=== PATIENT | male | born 1960 | race African-American/Black ===

== ENCOUNTER 2016-02-24 09:36 | Outpatient (CLI) | payer MEDICARE, OTHER ==
[2015-02-25 09:19] VITALS: BP 135/88
[2016-02-24 09:55] LABS: BASOPHILS % 0.6 (0.0-1.5); EOSINOPHILS % 1.7 % (0.0-6.8); MEAN CORPUSCULAR HEMOGLOBIN 34.2 pg (28.0-34.0); MONOCYTES # 0.3 # k/uL (0.0-0.9); MONOCYTES % 8.4 % (0.0-11.0); NEUTROPHILS # 1.8 # k/uL (1.4-7.7)
[2016-02-24 10:18] LABS: eGFR (African) > 60; eGFR (Non-African) > 60
== END 2016-02-24 09:37 ==
LOC: LAB 09:36
PROVIDERS: ATTEND Family Medicine
DX: E78.2 Mixed hyperlipidemia (principal); D50.0 Iron deficiency anemia secondary to blood loss (chronic); Z12.5 Encounter for screening for malignant neoplasm of prostate
CPT/HCPCS: 36415; 80053; 80061; 84153; 85025

== ENCOUNTER 2016-03-16 08:25 | Outpatient (CLI) | payer MEDICARE, MEDICAID ==
[2015-02-25 09:19] VITALS: BP 135/88
[2016-03-16 08:40] LABS: BASOPHILS % 0.4 (0.0-1.5); MONOCYTES # 0.4 # k/uL (0.0-0.9); NEUTROPHILS # 2.6 # k/uL (1.4-7.7)
== END 2016-03-16 08:26 ==
LOC: LAB 08:25
PROVIDERS: ATTEND Family Medicine
DX: D70.8 Other neutropenia (principal)
CPT/HCPCS: 36415; 85025

== ENCOUNTER 2016-04-01 10:42 | Outpatient (CLI) | payer MEDICARE, MEDICAID ==
[2015-02-25 09:19] VITALS: BP 135/88
== END 2016-04-01 10:43 ==
LOC: POD 10:42
PROVIDERS: ATTEND Podiatrist Public Medicine
DX: B35.1 Tinea unguium (principal); L60.0 Ingrowing nail; M79.674 Pain in right toe(s); M79.675 Pain in left toe(s)
CPT/HCPCS: 11721; G0463

== ENCOUNTER 2016-07-22 10:22 | Outpatient (CLI) | payer MEDICARE, OTHER ==
[2015-02-25 09:19] VITALS: BP 135/88
== END 2016-07-22 10:23 ==
LOC: POD 10:22
PROVIDERS: ATTEND Podiatrist Public Medicine
DX: B35.1 Tinea unguium (principal); L60.0 Ingrowing nail; M79.672 Pain in left foot; M79.674 Pain in right toe(s); M79.675 Pain in left toe(s); M76.62 Achilles tendinitis, left leg
CPT/HCPCS: G0463

== ENCOUNTER 2016-10-21 10:02 | Outpatient (CLI) | payer MEDICARE, OTHER ==
[2015-02-25 09:19] VITALS: BP 135/88
== END 2016-10-21 10:03 ==
LOC: POD 10:02
PROVIDERS: ATTEND Podiatrist Public Medicine
DX: B35.1 Tinea unguium (principal); M79.674 Pain in right toe(s); M79.675 Pain in left toe(s); M79.672 Pain in left foot; L60.0 Ingrowing nail; M76.62 Achilles tendinitis, left leg
CPT/HCPCS: 11721; G0463

== ENCOUNTER 2016-11-25 14:39 | Outpatient (CLI) | payer MEDICARE, OTHER ==
[2015-02-25 09:19] VITALS: BP 135/88
[2016-11-25 14:49] LABS: APPEARANCE,URINE Clear (CLEAR); COLOR,URINE Yellow (YELLOW); OCCULT BLOOD,URINE Negative (NEGATIVE); PH URINE 5.5 (5.0 - 8.0); UROBILINOGEN URINE 0.2 Eu (0.2-1.0)
== END 2016-11-25 14:40 ==
LOC: LAB 14:39
PROVIDERS: ATTEND Family Medicine
DX: R30.0 Dysuria (principal)
CPT/HCPCS: 81002; 87086

== ENCOUNTER 2017-01-20 14:54 | Outpatient (CLI) | payer MEDICARE, OTHER ==
[2015-02-25 09:19] VITALS: BP 135/88
--- NOTE | 2017-01-21 12:31 | OP Clinic Progress Note ---
REASON FOR VISIT: Travis is a 56-year-old man with a predominantly left-sided ear itch issues. He does not feel as if the hearing is really down. He has a mild but sticky otitis externa in the left ear. I do not see a hole or perforation or cholesteatoma and I do not see middle ear fluid. I micro-debrided the left ear and then put 91% alcohol drops in it. They do not sting. PLAN: I asked him to fill the ear canal with 91% alcohol solution once a day for the next 6 weeks and I will see him back and see if there is progress. It looks to be more of a smoldering otitis externa. cc: Dr. Ewelina PEREZ
== END 2017-01-20 15:00 ==
LOC: ENT 14:54
PROVIDERS: ATTEND Otolaryngology
DX: H60.92 Unspecified otitis externa, left ear (principal)
CPT/HCPCS: G0463

== ENCOUNTER 2017-02-17 10:27 | Outpatient (CLI) | payer MEDICARE, OTHER ==
[2015-02-25 09:19] VITALS: BP 135/88
== END 2017-02-17 10:30 ==
LOC: POD 10:27
PROVIDERS: ATTEND Podiatrist Public Medicine
DX: B35.1 Tinea unguium (principal); L60.0 Ingrowing nail; M76.62 Achilles tendinitis, left leg; M79.672 Pain in left foot; M79.674 Pain in right toe(s); M79.675 Pain in left toe(s)
CPT/HCPCS: 11721; G0463

== ENCOUNTER 2017-03-03 13:38 | Outpatient (CLI) | payer MEDICARE, OTHER ==
[2015-02-25 09:19] VITALS: BP 135/88
--- NOTE | 2017-03-08 17:39 | OP Clinic Progress Note ---
REASON FOR VISIT: This 56-year-old man was seen in follow up of bilateral otitis externa. He has had his ears cleaned. I had him use alcohol drops in both ears to keep these clean and that has been kept up with. Both eardrums and ear canals are fairly clean. There is no visual perforation. PLAN: I think, although he is markedly improved, for a year, just twice a month, approximately every 2 weeks, rinse both ears with alcohol. Again, ongoing for approximately a year. I would give him no specific follow up. There was a small amount of debris and a small amount of exudates that was not significant enough to need to be removed manually today. cc: Dr. Ewelina PEREZ
== END 2017-03-03 13:40 ==
LOC: ENT 13:38
PROVIDERS: ATTEND Otolaryngology
DX: H60.93 Unspecified otitis externa, bilateral (principal)
CPT/HCPCS: G0463

== ENCOUNTER → 2017-03-05 | Outpatient (CLI) | payer MEDICARE, OTHER ==
[2015-02-25 09:19] VITALS: BP 135/88
[2017-03-05 10:00] LABS: eGFR (African) > 60; eGFR (Non-African) > 60
== END ==
LOC: LAB 08:23
PROVIDERS: ATTEND Family Medicine
DX: E78.2 Mixed hyperlipidemia (principal); Z12.5 Encounter for screening for malignant neoplasm of prostate
CPT/HCPCS: 36415; 80053; 80061; G0103

== ENCOUNTER 2017-05-19 10:19 | Outpatient (CLI) | payer MEDICARE, OTHER ==
[2015-02-25 09:19] VITALS: BP 135/88
== END 2017-05-19 10:20 ==
LOC: POD 10:19
PROVIDERS: ATTEND Podiatrist Public Medicine
DX: B35.1 Tinea unguium (principal); L60.0 Ingrowing nail; M76.62 Achilles tendinitis, left leg; M79.672 Pain in left foot; M79.674 Pain in right toe(s); M79.675 Pain in left toe(s)
CPT/HCPCS: 11721; G0463

== ENCOUNTER 2017-09-15 10:15 | Outpatient (CLI) | payer MEDICARE, OTHER ==
[2015-02-25 09:19] VITALS: BP 135/88
== END 2017-09-15 10:16 ==
LOC: POD 10:15
PROVIDERS: ATTEND Podiatrist Public Medicine
DX: B35.1 Tinea unguium (principal); L60.0 Ingrowing nail; M76.62 Achilles tendinitis, left leg; M79.674 Pain in right toe(s); M79.675 Pain in left toe(s)
CPT/HCPCS: 11721; G0463

== ENCOUNTER 2018-03-07 10:51 | Outpatient (CLI) | payer MEDICARE, OTHER ==
[2015-02-25 09:19] VITALS: BP 135/88
[2018-03-07 11:44] LABS: eGFR (Non-African) 45
[2018-03-07 11:45] LABS: MEAN CORPUSCULAR HEMOGLOBIN 34.3 pg (28.0-34.0)
== END 2018-03-07 10:53 ==
LOC: LAB 10:51
PROVIDERS: ATTEND Family Medicine
DX: E78.2 Mixed hyperlipidemia (principal); D64.9 Anemia, unspecified; Z12.5 Encounter for screening for malignant neoplasm of prostate
CPT/HCPCS: 36415; 80053; 80061; 83540; 85027; G0103

== ENCOUNTER 2018-04-01 11:38 | Outpatient (CLI) | payer MEDICARE, OTHER ==
[2015-02-25 09:19] VITALS: BP 135/88
[2018-04-01 11:53] LABS: BASOPHILS % 0.3 (0.0-1.5); EOSINOPHILS % 2.3 % (0.0-6.8); MEAN CORPUSCULAR HEMOGLOBIN 34.9 pg (28.0-34.0); MONOCYTES % 4.5 % (0.0-11.0); NEUTROPHILS # 2.1 # k/uL (1.4-7.7)
[2018-04-01 12:20] LABS: eGFR (Non-African) > 60
== END 2018-04-01 11:45 ==
LOC: LAB 11:38
PROVIDERS: ATTEND Family Medicine
DX: R79.89 Other specified abnormal findings of blood chemistry (principal); D70.9 Neutropenia, unspecified
CPT/HCPCS: 36415; 80048; 85025

== ENCOUNTER 2018-09-26 09:51 | Outpatient (CLI) | payer MEDICARE, OTHER ==
[2015-02-25 09:19] VITALS: BP 135/88
[2018-09-26 10:14] LABS: BASOPHILS % 0.3 % (0.0-1.5); NEUTROPHILS # 2.3 # k/uL (1.4-7.7)
[2018-09-26 10:28] LABS: A1C 4.4 % (<5.7)
[2018-09-26 10:48] LABS: HDL 45 mg/dL (>40); eGFR (Non-African) > 60
== END 2018-09-26 09:53 ==
LOC: LAB 09:51
PROVIDERS: ATTEND Psychiatry & Neurology Psychiatry
DX: F32.9 Major depressive disorder, single episode, unspecified (principal)
CPT/HCPCS: 36415; 80053; 80061; 83036; 85025